=== PATIENT | male | born 1975 | race Caucasian/White ===

== ENCOUNTER 2017-03-11 10:16 | Outpatient (CLI) | payer OTHER ==
[2013-01-16 13:21] VITALS: BP 107/53
[2017-03-11 11:10] LABS: eGFR (African) > 60; eGFR (Non-African) > 60
== END 2017-03-11 10:17 ==
LOC: LAB 10:16
PROVIDERS: ATTEND Physician Assistant
DX: Z51.81 Encounter for therapeutic drug level monitoring (principal)
CPT/HCPCS: 36415; 80053; 80178

== ENCOUNTER 2017-07-04 09:24 | Outpatient (CLI) | payer OTHER ==
[2013-01-16 13:21] VITALS: BP 107/53
== END 2017-07-04 09:25 ==
LOC: LAB 09:24
PROVIDERS: ATTEND Physician Assistant
DX: Z51.81 Encounter for therapeutic drug level monitoring (principal)
CPT/HCPCS: 36415; 80178

== ENCOUNTER 2017-12-29 10:35 | Outpatient (CLI) | payer OTHER ==
[2013-01-16 13:21] VITALS: BP 107/53
== END 2017-12-29 10:36 ==
LOC: LAB 10:35
PROVIDERS: ATTEND Physician Assistant
DX: Z51.81 Encounter for therapeutic drug level monitoring (principal)
CPT/HCPCS: 36415; 80178

== ENCOUNTER 2018-02-04 10:37 | Outpatient (CLI) | payer OTHER ==
[2013-01-16 13:21] VITALS: BP 107/53
== END 2018-02-04 10:40 ==
LOC: LAB 10:37
PROVIDERS: ATTEND Physician Assistant
DX: F31.9 Bipolar disorder, unspecified (principal); Z79.899 Other long term (current) drug therapy
CPT/HCPCS: 36415; 80178